=== PATIENT | male | born 1990 | race Two or more races ===

== ENCOUNTER → 2022-03-08 10:28 | Outpatient (BNVA) | payer OTHER, SELFPAY | PROVIDERS: Visit Provider Emergency Medicine | DX: M79.661 Pain in right lower leg (principal) | CPT/HCPCS: 73590 ==

== ENCOUNTER → 2022-03-14 08:23 | Outpatient (BNVA) | payer OTHER, SELFPAY | PROVIDERS: PCP Emergency Medicine; Referring Provider Emergency Medicine; Visit Provider Nurse Practitioner Family | DX: Z87.81 Personal history of (healed) traumatic fracture (principal) | CPT/HCPCS: 73560; 73565; 73590 ==

== ENCOUNTER 2022-03-14 20:07 | Emergency (ER) | payer OTHER, SELFPAY ==
[2022-03-14 20:21] VITALS: BP 160/90; PULSE 88; RESP 18; TEMP 37; O2SAT 96; BMI 40.1
--- NOTE | 2022-03-14 20:45 | W.ED.GENADLT ---
HPI - General Adult General: Chief complaint: Airway/Esophagus Foreign Body Stated complaint: food stuck in esophagus Time Seen by Provider: 03/14/22 20:29 Source: patient Mode of arrival: ambulatory Limitations: no limitations History of Present Illness: 31-year-old male states that he was eating 2 to 3 hours before arrival he states that he is like he has food stuck in esophagus he had this happen multiple times before he had to have an EGD once. States he has not been able to tolerate any liquids since then. He denies any vomiting he does have some pain in his esophagus denies any worsening improving factors. Associated symptoms: Deny chest pain, dyspnea, headache(s), nausea, rash or vomiting Review of Systems Const: Denies: fever(s), chills, body aches or change in appetite Eyes: Denies: blurry vision or eye discomfort ENMT: Denies: throat pain or dental pain Card: Denies: chest pain Resp: Denies: dyspnea GI: Denies: abdominal pain, nausea, vomiting or diarrhea : Denies: dysuria Musc: Denies: neck pain or back pain Skin/Breast: Denies: rash Neuro: Denies: headache(s) Psych: Denies: depression Luis/Lymph: Denies: easy bruising All/Imm: Denies: urticaria PFSH ED PFSH: Medical History History of tibial fracture Social History Smoking and tobacco status: never smoked Physical Exam Const: COMMON NORMALS: patient oriented x3 and healthy appearing HENMT: COMMON NORMALS: normocephalic and atraumatic HEAD & SCALP: normocephalic and atraumatic Eye: COMMON NORMALS: Equal, round and reactive pupils present and EOMs intact bilaterally PUPIL: Yes Equal, round and reactive pupils present Neck/C-Spine: COMMON NORMALS: full ROM and supple Chest: COMMONS NORMALS: normal inspection of the chest and normal palpation of entire chest wall Resp: COMMON NORMALS: normal respiratory effort, No retractions, No use of accessory muscles and clear to auscultation bilaterally AUSCULTATION: clear to auscultation bilaterally Cardio: COMMON NORMALS: regular rate, regular rhythm and No murmurs present (Cardio) RATE: regular rate RHYTHM: regular rhythm GI: COMMON NORMALS: Normal to inspection, nondistended, normoactive bowel sounds present, Soft to palpation, non-tender and no masses PALPATION: Yes Soft to palpation Extremity: COMMON NORMALS: normal to inspection and full ROM Neuro: COMMON NORMALS: patient oriented x3, moves all extremities and no focal motor deficits Psych: COMMON NORMALS: mental status grossly normal, Normal thought process present and cooperative THOUGHT PROCESS: Normal thought process present Skin: COMMON NORMALS: no rashes or lesions noted and no wounds GENERAL SKIN EXAM: no rashes or lesions noted Course Vital Signs: Vital signs: Vital Signs Temperature 98.6 F 03/14/22 20:21 Pulse Rate 88 03/14/22 20:21 Respiratory Rate 18 03/14/22 20:21 Blood Pressure 160/90 03/14/22 20:21 Pulse Oximetry 96 03/14/22 20:21 MDM - General Adult Medical Decision Making Patient presents here with an esophageal food bolus that is since passed after glucagon and nitro he is able to tolerate fluids now he feels much improved he swallow without any problems he is stable for discharge is to follow-up PCP and return if worsening he understands agrees to plan. Discharge Plan Discharge Patient Disposition: Home Clinical Impression: Food impaction of esophagus Qualifiers: Encounter type: initial encounter Qualified Code(s): T18.128A - Food in esophagus causing other injury, initial encounter Condition: Stable Prescriptions: No Action lisinopril 10 mg tablet 10 mg PO DAILY Qty: 30 3RF naproxen 500 mg tablet 500 mg PO BID Qty: 60 0RF Discharge Orders: Discharge ED (Routine); Ordered 03/14/22 Ordered By: Osman Ramirez Referrals: Tony Sal PA [Primary Care Provider] - 1-3 days Discharge Diet: Advance as tolerated Discharge Activity: Resume usual activity Patient Instructions: Esophageal Foreign Body (ED) Coding Level of Care Code ED [employer] for [employer] Exam Comprehensive
[2022-03-14] MEDS: nitroglycerin 0.4 mg sublingual Tablet SUBLINGUAL (21:02)
[2022-03-14 21:35] VITALS: BP 137/104; PULSE 98; RESP 17; O2SAT 97
== END 2022-03-14 21:36 | disposition home or self-care (01) ==
PROVIDERS: Emergency Provider Emergency Medicine; PCP Emergency Medicine
DX: T18.128A Food in esophagus causing other injury, initial encounter (principal); X58.XXXA Exposure to other specified factors, initial encounter
CPT/HCPCS: 96374; 99284; J1610